=== PATIENT | male | born 1990 | race Caucasian/White ===

== ENCOUNTER 2016-11-25 13:03 | Emergency (ER) | payer BC, OTHER ==
[2016-11-25 13:06] VITALS: TEMP 36.9
[2016-11-25 14:11] LABS: BASO % 0.1 %; BASO ABS # 0.01 K/uL (0-0.2); COMPLETE YES; EOS % 0.5 %; HEMATOCRIT 42.7 % (42-52); IG% 0.3 %; LYMPH % 12.7 %; LYMPH ABS # 1.65 K/uL (1.2-3.4); MEAN CELL VOLUME 87.1 fL (80-100); MEAN CORPUSCULAR HGB CONC 34.4 g/dl (32-36); MONO % 10.2 %; NEUT % 76.2 %; PLATELET COUNT 251 K/uL (130-400); WHITE BLOOD COUNT 12.98 K/uL (4.8-10.8)
--- NOTE | 2016-11-25 14:13 | DIAGNOSTIC IMAGING REPORT ---
TESTICULAR ULTRASOUND HISTORY: Pain Left testicular pain and edema s/p dog paw striking testicle COMPARISON: None. FINDINGS: Right testis: Maximum dimension 3.3 cm. Normal vascular flow. Small right hydrocele. Left testis: 3.2 cm maximum dimension. Normal vascular flow. Mildly complex left-sided hydrocele. Somewhat heterogeneous left epididymis. Increase in left epididymal vascularity IMPRESSION: 1. Mild left epididymitis. 2. Small bilateral hydroceles. 3. Vascular flow is confirmed to both testis Electronically signed by: Bryson Pastrana M.D. 11/25/2016 2:12 PM Dictated Date/Time: 11/25/2016 2:10 PM
[2016-11-25] MEDS ORDERED: IMIP25TA3 PO (14:25)
[2016-11-25] MEDS ORDERED: LRS10 PO (14:25)
[2016-11-25] MEDS ORDERED: NITR100C4 PO (14:25)
[2016-11-25 14:30] LABS: BLOOD UREA NITROGEN 9 mg/dl (7-18); BUN/CREATININE RATIO 12.2 (10-20); CALCIUM 9.2 mg/dl (8.5-10.1); CARBON DIOXIDE 26 mmol/L (21-32); CHLORIDE 104 mmol/L (98-107); CREATININE 0.74 mg/dl (0.60-1.40); GLUCOSE 106 mg/dl (70-99); POTASSIUM 3.9 mmol/L (3.5-5.1); SODIUM 140 mmol/L (136-145)
[2016-11-25 14:33] LABS: ALKALINE PHOSPHATASE 128 U/L (45-117); ALT/SGPT 70 U/L (12-78); AST/SGOT 24 U/L (15-37)
--- NOTE | 2016-11-25 14:35 | EMERGENCY ROOM VISIT NOTE ---
History First contact with patient: 13:08 Chief Complaint: TESTICULAR PAIN Stated Complaint: SWOLLEN LEFT TESTICLE Nursing Triage Summary: pt reports on saturday his dog jumped up and paw hit him in left testicle. this am swollen and [facility] had low grade fever sent here for further eval History of Present Illness The patient is a 26 year old male who presents to the Emergency Room via private vehicle with complaints of "swollen left testicle". The patient states that this past Saturday night, a large dog jumped up in his lap, and the paw struck his left testicle. He states that he did feel pain, that persisted for some time and today notes minimal swelling in the left testicle. 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 He notes minimal pain in the left chest with this time. There is no penile discharge. He states he feels slightly warm, but denies abdominal pain, chest pain, shortness of breath, urinary symptoms. He states that his urine was cloudy at [facility], and they sent him here for further evaluation to include a potential ultrasound. He notes his last sexual partner was 2 years ago. Review of Systems A complete 10-point Review of Systems was discussed with the patient, with pertinent positives and negatives listed in the History of Present Illness. All remaining Review of Systems questions can be considered negative unless otherwise specified. Past Medical/Surgical History Neuroblastoma Family History No pertinent Social History Smoking Status: Never Smoker Social History: No pertinent Current/Historical Medications Scheduled Baclofen (Baclofen), 1 TAB PO TID Imipramine Hcl (Imipramine Hcl), 1 TAB PO TID Levofloxacin (Levaquin), 1 TAB PO DAILY Nitrofurantoin Macrocrystal (Macrodantin), 1 CAP PO DAILY Allergies Coded Allergies: Latex (Unverified Allergy, Unknown, UNKNOWN, 11/25/16) Sulfa Antibiotics (Unverified Allergy, Unknown, UNKNOWN, 11/25/16) Physical Exam Vital Signs Date Time Temp Pulse Resp B/P (MAP) Pulse Ox O2 Delivery O2 Flow Rate FiO2 11/25/16 14:55 90 16 125/94 11/25/16 13:06 36.9 102 18 146/80 94 Room Air Physical Exam VITAL SIGNS - Vital signs and nursing notes were reviewed. Patient is afebrile , hypertensive at 140/80, so tachycardic, and is saturating on room air 94%. GENERAL -26-year-old male appearing his stated age who is in no acute distress. Communicates well with provider and answers questions appropriately. SKIN - Without rashes. The skin is unremarkable. LUNGS - Chest wall symmetric without accessory muscle use, intercostals retractions, or central cyanosis. Normal vesicular breath sounds CTA B/L. No wheezes, rales, or rhonchi appreciated. CARDIAC - RRR with S1/S2. No murmur, rubs, or gallops appreciated. ABDOMEN - Abdominal contour without pulsations or visible masses. BS normoactive all four quadrants. No tenderness, palpable masses, hepatosplenomegaly, or ascites noted. : There is a slightly enlarged left testicle, no tenderness to palpation. Right testicle unremarkable. Penis unremarkable. No penile discharge. Medical Decision & Procedures ER Provider Diagnostic Interpretation: TESTICULAR ULTRASOUND HISTORY: Pain Left testicular pain and edema s/p dog paw striking testicle COMPARISON: None. FINDINGS: Right testis: Maximum dimension 3.3 cm. Normal vascular flow. Small right hydrocele. Left testis: 3.2 cm maximum dimension. Normal vascular flow. Mildly complex left-sided hydrocele. Somewhat heterogeneous left epididymis. Increase in left epididymal vascularity IMPRESSION: 1. Mild left epididymitis. 2. Small bilateral hydroceles. 3. Vascular flow is confirmed to both testis Electronically signed by: Bryson Pastrana M.D. 11/25/2016 2:12 PM Dictated Date/Time: 11/25/2016 2:10 PM Laboratory Results 11/25/16 13:58 Red Blood Count 4.90, Mean Corpuscular Volume 87.1, Mean Corpuscular Hemoglobin 30.0, Mean Corpuscular Hemoglobin Concent 34.4, Mean Platelet Volume 10.0, Neutrophils (%) (Auto) 76.2, Lymphocytes (%) (Auto) 12.7, Monocytes (%) (Auto) 10.2, Eosinophils (%) (Auto) 0.5, Basophils (%) (Auto) 0.1, Neutrophils # (Auto ) 9.88, Lymphocytes # (Auto) 1.65, Monocytes # (Auto) 1.33, Eosinophils # (Auto ) 0.07, Basophils # (Auto) 0.01 11/25/16 13:58 Test 11/25/16 13:58 11/25/16 14:08 White Blood Count 12.98 K/uL (4.8-10.8) Red Blood Count 4.90 M/uL (4.7-6.1) Hemoglobin 14.7 g/dL (14.0-18.0) Hematocrit 42.7 % (42-52) Mean Corpuscular Volume 87.1 fL (80-100) Mean Corpuscular Hemoglobin 30.0 pg (25-34) Mean Corpuscular Hemoglobin Concent 34.4 g/dl (32-36) Platelet Count 251 K/uL (130-400) Mean Platelet Volume 10.0 fL (7.4-10.4) Neutrophils (%) (Auto) 76.2 % Lymphocytes (%) (Auto) 12.7 % Monocytes (%) (Auto) 10.2 % Eosinophils (%) (Auto) 0.5 % Basophils (%) (Auto) 0.1 % Neutrophils # (Auto) 9.88 K/uL (1.4-6.5) Lymphocytes # (Auto) 1.65 K/uL (1.2-3.4) Monocytes # (Auto) 1.33 K/uL (0.11-0.59) Eosinophils # (Auto) 0.07 K/uL (0-0.5) Basophils # (Auto) 0.01 K/uL (0-0.2) RDW Standard Deviation 41.7 fL (36.4-46.3) RDW Coefficient of Variation 13.0 % (11.5-14.5) Immature Granulocyte % (Auto) 0.3 % Immature Granulocyte # (Auto) 0.04 K/uL (0.00-0.02) Anion Gap 10.0 mmol/L (3-11) Estimated GFR () 148.6 Estimated GFR (Non- 128.2 BUN/Creatinine Ratio 12.2 (10-20) Calcium Level 9.2 mg/dl (8.5-10.1) Total Bilirubin 0.8 mg/dl (0.2-1) Aspartate Amino Transf (AST/SGOT) 24 U/L (15-37) Alanine Aminotransferase (ALT/SGPT) 70 U/L (12-78) Alkaline Phosphatase 128 U/L (45-117) Total Protein 8.3 gm/dl (6.4-8.2) Albumin 4.1 gm/dl (3.4-5.0) Globulin 4.2 gm/dl (2.5-4.0) Albumin/Globulin Ratio 1.0 (0.9-2) Urine Color YELLOW Urine Appearance CLEAR (CLEAR) Urine pH 7.5 (4.5-7.5) Urine Specific [place] 1.015 (1.000-1.030) Urine Protein NEG (NEG) Urine Glucose (UA) NEG (NEG) Urine Ketones NEG (NEG) Urine Occult Blood NEG (NEG) Urine Nitrite NEG (NEG) Urine Bilirubin NEG (NEG) Urine Urobilinogen NEG (NEG) Urine Leukocyte Esterase SMALL (NEG) Urine WBC (Auto) 5-10 /hpf (0-5) Urine RBC (Auto) 0-4 /hpf (0-4) Urine Hyaline Casts (Auto) 1-5 /lpf (0-5) Urine Epithelial Cells (Auto) 5-10 /lpf (0-5) Urine Bacteria (Auto) NEG (NEG) Medical Decision Patient was seen and evaluated as above. After obtaining a thorough history and physical examination IV access was initiated and the above workup was performed. Patient has a history of remote trauma to the left testicle, and denies recent sexual contact. There is been no penile discharge. He denies any urinary symptoms. He does self cath daily. He has a history of neuroblastoma, and ambulates via wheelchair. Genital exam is unremarkable for tenderness, but slight edema of the left testicle is noted. Ultrasound confirms left epididymitis. No evidence of torsion on examination or ultrasound. Blood work was obtained, and reveals a slight leukocytosis, no anemia. Slight upper malleus on the CMP did not of which are emergent. Patient was informed upon today's findings and was educated upon the importance of follow-up with his family doctor. I did investigate with up-to-date with the current literature suggests and supports regarding the treatment of epididymitis in the setting of someone under the age of 35, but that has frequent urinary instrumentation secondary to self cathing. It appears that there are 2 recommendations, ofloxacin and levofloxacin. I will choose the once daily levofloxacin 500 mg for 10 days. Patient was educated to watch out for side effects. He was educated for upper guarding his blood pressure of which had returned normal. He is afebrile at this time. I believe he can be treated in the outpatient setting, but certainly which educated upon worrisome symptoms he is to return with. He was educated upon management, had questions prior to discharge, and was discharged home in good condition. In the evaluation and treatment of this patient following differential diagnoses were entertained: UTI, pyelonephritis, epididymitis, prostatitis, testicular torsion, among others. Impression Primary Impression: Epididymitis, left Departure Information Dispostion Home / Self-Care Condition GOOD Prescriptions Levofloxacin (LEVAQUIN) 500 Mg Tab 1 TAB PO DAILY for 10 Days, #10 TAB Prov: Esdras Damon PA-C 11/25/16 Referrals Vipul Maradiaga D.O. (PCP) Patient Instructions My [facility] Additional Instructions You have been treated in the Emergency Department for left testicular swelling following trauma. You have been prescribed Levofloxacin to be taken once daily. This is an antibiotic. All antibiotics have the potential to cause diarrhea. Stop this medication and contact a medical provider if you were to develop any significant adverse side effects including: wheezing, shortness of breath, passing out, vomiting, or a diffuse rash. Always take antibiotics as directed and COMPLETE the ENTIRE course regardless of the improvement of your symptoms. For pain control, you can use the following [id number] medicines (if >12 yo): - Regular strength (325mg/tab) Tylenol (acetaminophen) 2 tabs every 4-6 hours as needed. Do not exceed 12 tablets in a 24 hour period. Avoid taking more than 3 grams (3000 mg) of Tylenol per day. This includes any other sources of acetaminophen you may take on a regular basis. - Regular strength (200 mg/tab) Advil (ibuprofen) 1-2 tabs every 4-6 hours as needed. Do not exceed a dose of 3200 mg per day. Return to the emergency department if your symptoms worsen despite treatment course outlined above. Drink plenty of water and stay well hydrated. As with any trip to the Emergency Department, you should follow-up with your Primary Care Provider from today's visit. Return to the emergency department if your symptoms persist despite treatment plan outlined above or if the following symptoms occur: increased fevers, chills , low back pain, nausea/vomiting, or blood in your urine. Please return to the emergency department with any new/concerning symptoms.
[2016-11-25 15:02] LABS: URINE APPEARANCE CLEAR (CLEAR); URINE BILIRUBIN NEG (NEG); URINE COLOR YELLOW; URINE NITRITE NEG (NEG); URINE PH 7.5 (4.5-7.5); URINE SPECIFIC GRAVITY 1.015 (1.000-1.030); UROBILINOGEN NEG (NEG); ZZURINE CULT IF INDIC CATH NO
[2016-11-25 15:05] LABS: MANUAL MICROSCOPIC REQUIRED? NO; REVIEW REQ? NO
[2016-11-25] MEDS ORDERED: LEVO1TAB34 PO (15:10)
[2016-11-25 16:00] VITALS: BP 126/68; PULSE 78; O2SAT 97
== END 2016-11-25 16:02 | disposition home or self-care (01) ==
LOC: C.EDB 13:06 → C.EDC 16:02
DX: N45.1 Epididymitis (principal)